=== PATIENT | male | born 1930 | race Caucasian/White ===

== ENCOUNTER 2017-01-31 14:59 | Emergency (ER) | payer MEDICARE, OTHER ==
[2017-01-31] MEDS ORDERED: Sodium Chloride 0.9% 1,000 ML IV SCH (16:30)
[2017-01-31] MEDS ORDERED: Iopamidol 755 Mg/ML 100 ML Bottle IV ONE (16:49)
[2017-01-31 18:52] VITALS: BP 139/96
--- NOTE | 2017-02-03 12:26 | ER ---
DATE SEEN: 01/31/2017 HISTORY OF PRESENT ILLNESS: This 86-year-old pleasant fellow was here with his notes that he has had a bad taste in mouth since yesterday. He has right upper quadrant discomfort intermittently and fullness, it is not a pain, and it has been present on and off for the last several weeks. He was seen in same-day clinic yesterday and had laboratory studies performed, which were negative. He denies nausea, vomiting, or diarrhea, although he has had some loose stools a little bit more than usual this past week. He denies blood in his stool, hematochezia, GERD, chest pain, shortness of breath, cough, dyspnea, neck pain, jaw pain, arm pain, or back pain. He has been sleeping poorly recently. He has sleep apnea and uses CPAP machine. He has lost about 10 pounds in the last 3 weeks. He describes the abdominal discomfort from the umbilicus to the level of about 8 to 10 cm above the umbilicus, has a band across his abdomen. It does not radiate to his back. More notable in the right upper quadrant as opposed to left upper quadrant. No history of splenomegaly, tuberculosis, Legionella, or even potential leptospirosis. The patient denies sore throat or congestion. PAST MEDICAL HISTORY: Significant for: 1. Cholecystectomy. 2. He has been told he has cysts on his liver. 3. GERD, he uses PPI twice a day. 4. Hiatus hernia. 5. Status post prostate cancer treated with radioactive seeds. 6. Vagotomy and pyloroplasty for gastric ulcers in the past. 7. Appendectomy. Twenty years ago, he had other surgery and knows he has adhesions and scar tissue in his abdomen. 8. Hypertension. 9. Dyslipidemia. 10.Difficulty sleeping at night. He has an ultrasound scheduled for 2 to 3 days from now. The patient denies fever. CURRENT MEDICATIONS: 1. Lisinopril 2.5 mg daily. 2. Aspirin. 3. Omeprazole 20 mg daily. 4. Vitamins with minerals. 5. Metoprolol tartrate 25 mg daily. 6. Metamucil. 7. Ranitidine 150 mg daily. 8. Simvastatin 20 mg daily. 9. Zolpidem (Ambien) 2.5 mg daily. 10.Terazosin (Hytrin, blood pressure pill) 5 mg at bedtime. ALLERGIES: None. SOCIAL HISTORY: The patient is . Retired. REVIEW OF SYSTEMS: HEENT: Denies headaches or neck stiffness. Denies compromise in vision, difficulty swallowing, sinusitis, sore throat, or dental problems. CARDIORESPIRATORY: Denies shortness of breath, chest pain, irregularity of heartbeat, near syncope, syncope, or pedal edema. No compromised circulation in lower extremities. GASTROINTESTINAL: Denies nausea, vomiting, diarrhea, or reflux. He has had looser stools in the past week than usual. No previous use of antibiotics. NEUROLOGIC: Negative. Denies headache, head injuries, neck stiffness, compromised strength in upper and lower extremities, or sensory abnormalities. GENITOURINARY: He has frequency and occasional urgency but does not have urinary tract infection, foul urine, dysuria, or difficulty passing urine. MUSCULOSKELETAL: Denies arthritis or pains in the muscle. PHYSICAL EXAMINATION: VITAL SIGNS: Blood pressure 120/58, heart rate regular at 96; heart rate went down to 76 before dismissed, mean arterial pressure was 78, was 120/58 initially; later on it was 139/96, heart rate increased to 110. Oxygen saturation 96 on room air. Respirations 16 and 14. Weight 76.2 kilos and BMI 25.5 kg/m2. GENERAL: The patient is alert, pleasant, has a very cordial disposition, as does his . HEENT: Negative. TMs negative. Pharynx without abnormality. Gag is normal. NECK: No masses in neck. No bruits in neck. LUNGS: Clear to auscultation without rales, rhonchi, or wheezes. HEART: S1, S2. No murmur. No irregular rate and rhythm. ABDOMEN: Soft. No guarding. No abdominal discomfort except there is mild discomfort in the right upper quadrant. No focal mass. He has old scar on the abdomen that has healed. Bowel sounds are present and not hyperactive. No distention. RECTAL: Not performed. GENITOURINARY: Prostate not examined. Genitalia, negative. EXTREMITIES: Lower extremities without edema. No stasis dermatitis. Deep tendon reflex in upper and lower extremities symmetrical 1+ normoactive. Cranial nerves 2 through 12 intact. Oriented x3 and gait appropriate. Romberg is negative. DIAGNOSTIC STUDIES: CAT scan of the abdomen reveals no obstruction. No thickening of the bowel. No suggestion of compromised kidneys. He has extensive calcification noted, see radiology note regarding his left femoral and iliac blood vessels. He also has other calcifications in coronary arteries and other structures. LABORATORY FINDINGS: White count is normal 4600, PMNs 68, lymphocytes 23, monos 9; hemoglobin 13.2; and platelets 101,000, which is low, thrombocytopenia. D- dimer 936 (not abnormal for his age, 10 times his age would be 880 and studies shows he could be 2 to 3 times normal and still be within normal range. AST 34, ALT 24, and alkaline phosphatase 44. Troponin 0.01. Otherwise, automated chemistry is normal. C-reactive protein less than 5 and lactic acid 1.2. ASSESSMENT: 1. 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 He is also already on isosorbide. (He said he was on isosorbide, but reviewing the chart, there is no evidence of isosorbide in the chart.) 2. He would do well to try this isosorbide. 3. Maybe improve gut circulation. 4. He had multiple surgeries with adhesions, and probably adhesions are a factor in his discomfort he experiences intermittently. At this point, there is no suggestion of bowel obstruction or mass in the abdomen. 5. Reassured the patient. 6. Obstructive sleep apnea. It can also cause abdominal discomfort, weight loss, and ischemic symptoms if not effectively treated with CPAP. 7. No evidence for hiatus hernia. 8. 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 9. Status post vagotomy, pyloroplasty, appendectomy, and cholecystectomy. PLAN: Use isosorbide 30 mg daily. Follow up with doctor in a week. The patient was seen at 1942 hours. /[id number] NEL/MARTÍNEZ
== END 2017-01-31 18:50 | disposition home or self-care (01) ==
LOC: FB.ED 14:59
DX: R10.11 Right upper quadrant pain (principal); R19.7 Diarrhea, unspecified; G47.33 Obstructive sleep apnea (adult) (pediatric); Z90.49 Acquired absence of other specified parts of digestive tract; Z98.890 Other specified postprocedural states; I10 Essential (primary) hypertension; E78.5 Hyperlipidemia, unspecified; Z79.899 Other long term (current) drug therapy
CPT/HCPCS: 36415; 74177; 80053; 83605; 84484; 85025; 85379; 86140; 93005; 96360; 96361; 99283; 99284; J7040; Q9967

== ENCOUNTER 2017-02-03 11:33 | Emergency (ER) | payer MEDICARE, OTHER ==
[2017-02-03 15:36] VITALS: BP 105/61
--- NOTE | 2017-02-09 09:20 | ER ---
DATE SEEN: 02/03/2017 HISTORY OF PRESENT ILLNESS: Erik has returned. He was seen this weekend on 01/30/2017m and he says "I feel sick. I feel worse. I suddenly feel full." He was seen by Dr. Greenwood yesterday. Dr. Greenwood could not find any abnormality, but "I feel so miserable. Things have gotten worse." After further inquiry, "My stomach feels full. My stomach is tender to touch", and he points to the right upper quadrant, and he has some discomfort about 8 cm below the xiphoid. "I don't know how to describe it." The patient states for "years and years and years" has more abdominal discomfort and gradually progressively getting worse and has more nausea noted this week. No new medications. The patient was seen by his nurse practitioner, who placed him on Carafate. He still has 8/10 discomfort. He was actually placed on Carafate on 01/28/2017. The patient notes he has GERD and has "an awful taste in his mouth" but no feeling of GERD, just the taste in his mouth. Gastrointestinal Symptoms: He has had 2 bowel movements today. They are loose but not unusually loose. No diarrhea. He had 2 stools yesterday. Taking Metamucil and stools are soft. No history of pancreatitis. He notes, over the last 3 to 4 months, his weight has decreased by 7 pounds. At one time, it was 227 pounds, now it is 168 pounds. He had 2 bowel movements yesterday. The patient denies back pain. Denies any diabetes. Denies hypertension. He denies stress but then he "gets very uptight" per his when things happen "all of a sudden". The patient states he cannot tell me why he gets upset. He is not on an anxiety pill. "I let things worry me." The patient is concerned because his father and brother of cancer, and the patient thinks he is going to , so always thinking about my health. "I feel like I'm going to come down with something, come down with cancer. I have nothing to worry about." His friends call him "the grouch", and they call him the "coffee fiend". I do not feel I have control of things, and things are just getting out of hand." He does not care to eat. Eating a bland diet, per his , did not make any difference to his eating. He is not allergic to dairy products nor does he have gluten intolerance. No recent fever. No lightheadedness. No chest pain or irregular heartbeat. No syncope, near syncope, palpitations, or swelling of ankles. No new back pain. PAST MEDICAL HISTORY: Significant for 2 stents, bladder cancer, colon cancer, diverticulitis, colonoscopy a year ago, radiation seeds for prostate cancer. More recently was placed on Carafate on 01/28/2017 to decrease the stomach symptoms but has not made any difference. CURRENT MEDICATIONS: 1. Ambien 2.5 mg at bedtime. 2. Hytrin 5 mg at bedtime. 3. Simvastatin 20 mg at bedtime. 4. Zantac 150 mg daily. 5. Metamucil package daily. 6. Omeprazole 20 mg daily. 7. Metoprolol tartrate 25 mg daily. 8. Lisinopril 2.5 mg daily. 9. Aspirin 81 mg daily. REVIEW OF SYSTEMS: Negative, except for that noted in HPI. PHYSICAL EXAMINATION: VITAL SIGNS: Blood pressure is 121/64, heart rate 62 and, respirations 18, oxygen saturation 98%, and temperature is 36.6 degrees. The patient's weight is 76.2 kilos, and BMI is 25.5 kg/m2. GENERAL: The patient is alert and has decreased hearing. He is well tanned, wearing shorts. Face is well tanned. The patient is anxious and apprehensive. He sits close to the edge of the chair. HEENT: PERRLA intact. Pharynx without abnormality. Gag is in place. No assymetry of the uvula. NECK: No bruits. No thyromegaly. No masses. LUNGS: Clear to auscultation without rales, rhonchi, or wheezes. HEART: S1, S2. No irregular rate or rhythm. No murmur. ABDOMEN: Soft. No guarding. He has mild discomfort to the left of midline. No discrete tenderness. No hernia demonstrated. No asymmetry of the abdominal wall. Old midline incision healed without hernia. No CVA percussion or tenderness. RECTAL: Not performed. GENITALIA: Normal to inspection. Testes bilaterally descended. Testes nontender. EXTREMITIES: Without abnormality. No edema. Dorsalis pedis intact. Upper extremities sensation and pulses intact. NEUROLOGIC: Deep tendon reflex upper and lower extremities symmetrical 1+ normoactive. Cranial nerves 2 through 12 intact. Oriented x3. Gait intact. No dysdiadochokinesis. LABORATORY STUDIES: Normal today with white count 4,600; PMNs 70, lymphs 20, monos 9; hemoglobin 13.2; and platelets low normal 104,000. Complete metabolic panel is normal, see chart. Lactate is normal at 1.8. AST slightly elevated at 31, ALT is 23, alkaline phosphatase trace elevated 42. Troponin less than 0.01. Normal urinalysis. ASSESSMENT: The patient has overwhelming anxiety. He has fear of dying, fear that something could happen to him, and also fear that cancer might declare itself. He has had previous documented colon cancer, bladder cancer, prostate cancer treatment, also 2 stents, and diverticular disease. He has some bladder, colon, and prostate cancer. The patient is stable presently. He is reassured. DIAGNOSIS: Stress mediated anxiety and fear of cancer. PLAN: The patient will be started on Seroquel 50 mg long-acting at bedtime to see if that makes a difference. He is advised that he may be too sleepy with this, and the dose may need to be changed. Will start with 50 mg, follow up with doctor in a week or earlier if worse. The patient was seen at 1153 hours. /[id number] NEL/MARTÍNEZ
== END 2017-02-03 14:05 | disposition home or self-care (01) ==
LOC: FB.ED 11:33
DX: F43.0 Acute stress reaction (principal); F41.9 Anxiety disorder, unspecified; Z79.899 Other long term (current) drug therapy; Z85.51 Personal history of malignant neoplasm of bladder; Z85.038 Personal history of other malignant neoplasm of large intestine; Z85.46 Personal history of malignant neoplasm of prostate
CPT/HCPCS: 36415; 80053; 81001; 83605; 84484; 85025; 86140; 93005; 99283; 99284